=== PATIENT | male | born 1975 | race Caucasian/White ===

== ENCOUNTER 2017-09-06 20:01 | Emergency (ER) | payer OTHER ==
[2017-09-06] MEDS ORDERED: IBUPROFEN 800 MG TAB PO STA (22:05)
[2017-09-06] MEDS ORDERED: DEXAMETHASONE 4 MG TAB PO STA (22:05)
--- NOTE | 2017-09-06 22:12 | ED ---
Back Pain HPI - General Chief Complaint: Back Pain/Injury Stated Complaint: pinched nerve/trouble sleeping Time Seen by Provider: 09/06/17 21:40 Source: patient, RN notes reviewed Limitations: no limitations - History of Present Illness Initial Comments: Is a 42-year-old male with a history of gallbladder no other major medical issues who states for the past several months she's had low back pain for which she's been seeking home care nurse. He's been getting worse over the same period time is had numbness with pins and needles like discomfort to his right foot also some numbness and burning type pain. He states currently the pain is 10/10 severity both was low back which is achy and to his right foot discuss this right calf pain hurts with palpation and movement. He does drive a truck he is not recall any particular incident that hurt his leg or his low back. No urinary or fecal incontinence no fevers chills or sweats no cough or phlegm production no dysuria no hematuria. MD Complaint: back pain, other - Related Data Previous Rx's Medication Instructions Recorded HYDROcodone/APAP 5-325MG [[place] 1 tab PO Q6HR PRN #12 tab 09/06/17 5-325] Hydrocodone/Acetaminophen [[place] 1 each PO Q6HR PRN #20 tab 09/06/17 5-325] Ibuprofen 800 mg PO Q6HR PRN #20 tablet 09/06/17 Orphenadrine [Norflex] 100 mg PO Q12H #7 tablet.er 09/06/17 predniSONE 20 mg PO BID #10 tab 09/06/17 Allergies Allergy/AdvReac Type Severity Reaction Status Date / Time No Known Allergies Allergy Verified 09/06/17 21:37 Review of Systems ROS Statement: Those systems with pertinent positive or pertinent negative responses have been documented in the HPI. ROS Other: All systems not noted in ROS Statement are negative. Past Medical History Additional Past Medical History / Comment(s): back pain, gout History of Any Multi-Drug Resistant Organisms: None Reported Past Surgical History: No Surgical Hx Reported Past Psychological History: No Psychological Hx Reported Smoking Status: Current every day smoker Past Alcohol Use History: Occasional Past Drug Use History: None Reported General Exam - General Exam Comments Initial Comments: This is a well-developed well-nourished awake alert oriented times 3 male Limitations: no limitations General appearance: alert, in distress Head exam: Present: atraumatic, normocephalic, normal inspection Eye exam: Present: normal appearance, PERRL, EOMI. Absent: scleral icterus, conjunctival injection, periorbital swelling ENT exam: Present: normal exam, mucous membranes moist Neck exam: Present: normal inspection. Absent: tenderness, meningismus, lymphadenopathy Respiratory exam: Present: normal lung sounds bilaterally. Absent: respiratory distress, wheezes, rales, rhonchi, stridor Cardiovascular Exam: Present: regular rate, normal rhythm, normal heart sounds. Absent: systolic murmur, diastolic murmur, rubs, gallop, clicks Extremities exam: Present: full ROM, tenderness, normal capillary refill, calf tenderness (Tenderness on palpation no definite Homans sign no definite palpable cords.). Absent: pedal edema, joint swelling Back exam: Present: normal inspection, tenderness, paraspinal tenderness. Absent: CVA tenderness (R), CVA tenderness (L), rash noted (Tenderness palpation of the mid to lower lumbar paraspinous muscles and over the right SI joint and right gluteus.) Neurological exam: Present: alert, oriented X3, CN II-XII intact, reflexes normal. Absent: motor sensory deficit Psychiatric exam: Present: normal affect, normal mood Course Vital Signs 09/06/17 09/06/17 20:06 21:48 Temperature 98.3 F Pulse Rate 86 58 L Respiratory 18 20 Rate Blood Pressure 173/86 171/89 O2 Sat by Pulse 97 96 Oximetry Medical Decision Making - Medical Decision Making I did have a long discussion with patient family regarding the findings. Patient will be discharged with follow-up with orthopedic spine surgery. I did discuss the case with Dr. Flaherty. Patient will follow-up with his primary doctor for referral. - Radiology Data Radiology results: report reviewed (I did review the imaging and reports patient does demonstrate degenerative spine disease with multilevel spondylosis posterior central disc herniations at multiple levels as well as a spinal stenosis at L3 to 4 and L4 to 5 level facet arthropathy he threw disc herniations also at L3 to 4 and L4 to 5 also bilateral neural foraminal narrowing at L3 to S1. No acute fractures or subluxations noted.), image reviewed Disposition Clinical Impression: Strain of lumbar region, Sciatica, Lumbar radiculopathy, Spinal stenosis, Lumbar disc herniation Disposition: HOME SELF-CARE Condition: Good Instructions: Acute Low Back Pain (ED), Chronic Back Pain (ED), Sciatica (ED), Lumbar Radiculopathy (ED) Prescriptions: Hydrocodone/Acetaminophen [[place] 5-325] 1 each PO Q6HR PRN #20 tab PRN Reason: Pain HYDROcodone/APAP 5-325MG [[place] 5-325] 1 tab PO Q6HR PRN #12 tab PRN Reason: Pain Ibuprofen 800 mg PO Q6HR PRN #20 tablet PRN Reason: Pain Orphenadrine [Norflex] 100 mg PO Q12H #7 tablet.er predniSONE 20 mg PO BID #10 tab Referrals: Beatrice Mitchell MD [Primary Care Provider] - 1-2 days
--- NOTE | 2017-09-06 22:40 | CT ---
EXAMINATION TYPE: CT lumbar spine wo con DATE OF EXAM: 09/06/2017 10:30 PM COMPARISON: NONE HISTORY: Low back pain with numbness and tingling down right leg. CT DLP: 2481.30 mGycm Automated exposure control for dose reduction was used. Unenhanced CT of the lumbar spine was performed. Bone and soft tissue window settings are submitted as well as coronal and sagittal reconstructions. The lumbar vertebra have normal alignment. Disc spaces are fairly well-maintained. There are posterio r disc herniations at L3-4 L4-5 L5-S1 with some encroachment on the spinal canal. There is hypertroph ic facet arthropathy in the mid and lower lumbar spine. There is a relative spinal stenosis at L3-4 a nd L4-5. There is no paraspinal mass. There is no compression fracture. Posterior elements are intact . Abdominal aorta is atheromatous. I see no focal bone destruction. IMPRESSION: Multilevel spondylosis. Posterior central disc herniations at multiple levels with a relative spinal stenosis at L3-4 and L4-5. Multilevel facet arthropathy. No fracture seen. Anterior disc herniations also present at L3-4 and L4-5. There is bilateral neural foraminal narrowing due to facet arthropathy from L3 to S1.
--- NOTE | 2017-09-06 23:04 | US ---
EXAMINATION TYPE: US venous doppler duplex LE RT DATE OF EXAM: 09/06/2017 10:07 PM COMPARISON: NONE CLINICAL HISTORY: Pain. left foot numbness SIDE PERFORMED: Right TECHNIQUE: The lower extremity deep venous system is examined utilizing real time linear array sonog tamika with graded compression, doppler sonography and color-flow sonography. VESSELS IMAGED: External Iliac Vein (EIV) Common Femoral Vein Deep Femoral Vein Greater Saphenous Vein * Femoral Vein Popliteal Vein Small Saphenous Vein * Proximal Calf Veins (* superficial vessels) Right Leg: Negative for DVT No evidence of DVT IMPRESSION: Negative exam. No evidence of deep venous thrombosis in the right leg.
[2017-09-06 23:38] VITALS: BP 151/82; PULSE 73; RESP 18; TEMP 97.7
== END 2017-09-06 23:38 | disposition home or self-care (01) ==
LOC: EC 20:01 → MERGE 20:01 → EC 23:38
DX: S39.012A Strain of muscle, fascia and tendon of lower back, initial encounter (principal); M48.061 Spinal stenosis, lumbar region without neurogenic claudication; M51.16 Intervertebral disc disorders with radiculopathy, lumbar region; F17.200 Nicotine dependence, unspecified, uncomplicated
CPT/HCPCS: 93971; 72131; 99283; J8540

== ENCOUNTER 2023-04-12 08:05 | Day surgery (SDC) | payer BC, OTHER ==
[2023-04-12] MEDS ORDERED: LACTATED RINGERS 1,000 ML IV ONE (08:25)
[2023-04-12] MEDS ORDERED: LIDOCAINE 2% INJ 20 MG/ML (2 ML VIAL) ONE (08:33)
[2023-04-12] MEDS ORDERED: PROPOFOL 10 MG/ML 20 ML VIAL IV ONE (08:33)
--- NOTE | 2023-04-12 08:35 | P.GSHP ---
History of Present Illness H&P Date: 04/12/23 Chief Complaint: Colon cancer screening 48-year-old male here for colonoscopy. He had a colonoscopy many years ago that was normal. Family history of prostate cancer and his brother. No bowel complaints. Past Medical History Past Medical History: Diabetes Mellitus, Hearing Disorder / Deafness, Hypertension Additional Past Medical History / Comment(s): Routine colonoscopy. NIDDM type II, occasional back pain, gout, tinnitis L ear History of Any Multi-Drug Resistant Organisms: None Reported Past Surgical History: No Surgical Hx Reported Additional Past Surgical History / Comment(s): Vasectomy, colonoscopies Past Anesthesia/Blood Transfusion Reactions: No Reported Reaction Smoking Status: Current every day smoker - Past Family History Father Family Medical History: Liver Disease Additional Family Medical History / Comment(s): from Cirrhosis. Medications and Allergies Home Medications Medication Instructions Recorded Confirmed Type Ibuprofen [Motrin Ib] 800 mg PO DIRECTED PRN 04/06/23 04/12/23 History Pravastatin Sodium [Pravachol] 10 mg PO DAILY 04/06/23 04/12/23 History Unk Multi Vitamin 1 tab PO DAILY 04/06/23 04/12/23 History lisinopriL [Zestril] 5 mg PO HS 04/06/23 04/12/23 History metFORMIN HCL 1,000 mg PO BID 04/06/23 04/12/23 History Allergies Allergy/AdvReac Type Severity Reaction Status Date / Time No Known Allergies Allergy Verified 04/12/23 08:27 Surgical - Exam Vital Signs Temp Pulse Resp BP Pulse Ox 97.7 F 75 16 139/80 96 04/12/23 08:23 04/12/23 08:23 04/12/23 08:23 04/12/23 08:23 04/12/23 08:23 Physical exam: General: Well-developed, well-nourished HEENT: Normocephalic, sclerae nonicteric Abdomen: Nontender, nondistended Extremities: No edema Neuro: Alert and oriented Assessment and Plan (1) Colon cancer screening Narrative/Plan: Will proceed with colonoscopy at this time. Current Visit: Yes Status: Acute Code(s): Z12.11 - ENCOUNTER FOR SCREENING FOR MALIGNANT NEOPLASM OF COLON SNOMED Code(s): 369961732
--- NOTE | 2023-04-12 08:57 | P.PCN ---
Date of Procedure: 04/12/23 Procedure(s) Performed: PREOPERATIVE DIAGNOSIS: Colon cancer screening POSTOPERATIVE DIAGNOSIS: Ileocecal valve polyp, descending colon polyp PROCEDURE: Colonoscopy with snare polypectomy and biopsy ANESTHESIA: MAC SURGEON: Guicho Villalobos M.D. SPECIMENS: Polyps ENDOSCOPIC PROCEDURE: The patient was placed on the endoscopy table in the left decubitus position. The Olympus colonoscope was inserted into the anus and passed under direct visualization to the base of the cecum. The appendiceal orifice was visualized. From that point the scope was slowly withdrawn inspecting all surfaces carefully. There was noted to be irregularity of the ileocecal valve. It was difficult to see a distinct polyp however there was some granular appearing tissue at the valve orifice. This may have represented normal small bowel mucosa but atypical polyp was a possibility. Multiple cold biopsies of this area took place. The remainder of the cecum ascending transverse colon appeared normal. In the descending colon a small polyp was seen measuring 7 mm and removed using the snare with cautery technique. The remainder of the descending sigmoid and rectum appeared normal. The patient's prep was slightly suboptimal limited visualization of some of the mucosal surfaces. Digital rectal examination was normal. The patient was taken to the recovery room in stable condition per anesthesia guidelines. RECOMMENDATIONS: Await biopsy results. If ileocecal valve biopsies show adenomatous tissue will require referral to advanced endoscopy for endoscopic mucosal resection.
[2023-04-12 09:01] VITALS: PULSE 74
[2023-04-12] MEDS ORDERED: LIDOCAINE 1% (10MG/ML) FOR IV START INTRADERMA PRN (09:02)
[2023-04-12] MEDS ORDERED: LACTATED RINGERS 1,000 ML IV SCH (09:02)
[2023-04-12 09:09] LABS: Glucose,Whole Blood 239 mg/dL (70-110)
[2023-04-12 09:12] LABS: Glucose,Whole Blood 230 mg/dL (70-110)
[2023-04-12 09:26] VITALS: BP 142/91; RESP 20; TEMP 70
== END 2023-04-12 09:54 | disposition home or self-care (01) ==
LOC: ORWHC2ENDO 08:05
PROVIDERS: ATTEND Surgery
DX: Z12.11 Encounter for screening for malignant neoplasm of colon (principal); D12.4 Benign neoplasm of descending colon; E11.9 Type 2 diabetes mellitus without complications; I10 Essential (primary) hypertension; F17.200 Nicotine dependence, unspecified, uncomplicated; Z80.42 Family history of malignant neoplasm of prostate; Z83.79 Family history of other diseases of the digestive system; Z79.899 Other long term (current) drug therapy
CPT/HCPCS: 88305; 45380; 45385; J2704; J2001

== ENCOUNTER 2025-02-05 07:06 | Day surgery (SDC) | payer BC ==
[2025-02-04 08:54] VITALS: BMI 35.9
[~2025-02-05 07:06] MED LIST: LACTATED RINGERS 1,000 ML IV SCH
[2025-02-05] MEDS: IV FLUID CONTINUATION 1,000 ML IV ONE (07:30)
[2025-02-05 07:52] LABS: Glucose,Whole Blood 100 mg/dL (70-110)
[2025-02-05 07:54] VITALS: RESP 16; TEMP 96.9
[2025-02-05] MEDS ORDERED: PROPOFOL 10 MG/ML 20 ML VIAL IV ONE (08:30)
[2025-02-05] MEDS ORDERED: LIDOCAINE 1% INJ 10MG/ML (20 ML MDV) ONE (08:30)
--- NOTE | 2025-02-05 08:34 | P.GSHP ---
History of Present Illness H&P Date: 02/05/25 Chief Complaint: History of colon polyp 49-year-old male here for colonoscopy. Patient last had a colonoscopy 2 years ago. 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 This required resection excision by advanced endoscopy at [facility]. This is his first follow-up colonoscopy since then. Family history of colon cancer in his brother. Past Medical History Past Medical History: Diabetes Mellitus, Hearing Disorder / Deafness, Hypertension Additional Past Medical History / Comment(s): NIDDM type II, occasional back pain, gout, tinnitis L ear History of Any Multi-Drug Resistant Organisms: None Reported Past Surgical History: No Surgical Hx Reported Additional Past Surgical History / Comment(s): Vasectomy, colonoscopies Past Anesthesia/Blood Transfusion Reactions: No Reported Reaction Smoking Status: Current every day smoker - Past Family History Father Family Medical History: Liver Disease Additional Family Medical History / Comment(s): from Cirrhosis. Medications and Allergies Home Medications Medication Instructions Recorded Confirmed Type metFORMIN HCL 1,000 mg PO BID 04/06/23 02/05/25 History Empagliflozin [Jardiance] 25 mg PO DAILY 02/04/25 02/05/25 History Multivit-Mins/Iron/Folic/Lycop 1 each PO DAILY 02/04/25 02/05/25 History [Centrum Men's Tablet] Rosuvastatin [Crestor] 10 mg PO HS 02/04/25 02/05/25 History Tirzepatide [Mounjaro] 2.5 mg SQ SA 02/04/25 02/05/25 History Valsartan [Diovan] 160 mg PO DAILY 02/04/25 02/05/25 History Allergies Allergy/AdvReac Type Severity Reaction Status Date / Time No Known Allergies Allergy Verified 02/04/25 08:45 Surgical - Exam Vital Signs Temp Pulse Resp BP Pulse Ox 96.9 F L 86 16 121/82 98 02/05/25 07:30 02/05/25 07:30 02/05/25 07:30 02/05/25 07:30 02/05/25 07:30 Physical exam: General: Well-developed, well-nourished HEENT: Normocephalic, sclerae nonicteric Abdomen: Nontender, nondistended Extremities: No edema Neuro: Alert and oriented Assessment and Plan (1) History of colon polyps Narrative/Plan: Will proceed with colonoscopy at this time. Current Visit: Yes Status: Acute Code(s): Z86.0100 - PERSONAL HISTORY OF COLON POLYPS, UNSPECIFIED SNOMED Code(s): 532636920
--- NOTE | 2025-02-05 08:52 | P.PCN ---
Date of Procedure: 02/05/25 Procedure(s) Performed: PREOPERATIVE DIAGNOSIS: History of previous colon polyp, family history of colon cancer in brother POSTOPERATIVE DIAGNOSIS: Normal exam PROCEDURE: Colonoscopy with biopsy of previous ileocecal valve polyp scar site ANESTHESIA: MAC SURGEON: Guicho Villalobos M.D. SPECIMENS: Ileocecal valve ENDOSCOPIC PROCEDURE: The patient was placed on the endoscopy table in the left decubitus position. The Olympus colonoscope was inserted into the anus and passed under direct visualization to the base of the cecum. The appendiceal orifice was visualized. From that point the scope was slowly withdrawn inspecting all surfaces carefully. There were no neoplastic inflammatory or polypoid lesions throughout the cecum, ascending, transverse, descending, sigmoid and rectum. There was some scarring at the ileocecal valve at the site of previous tubular adenoma that was resected at [facility]. A biopsy with a cold biopsy forceps took place. The remainder of the ascending transverse descending sigmoid and rectum appeared normal. There was no visible diverticulosis. Digital rectal examination was normal. The patient was taken to the recovery room in stable condition per anesthesia guidelines. RECOMMENDATIONS: Await biopsy results. Anticipate repeat colonoscopy 5 years.
[2025-02-05 09:33] VITALS: BP 127/74; PULSE 78
== END 2025-02-05 09:46 | disposition home or self-care (01) ==
LOC: ORWHC2ENDO 07:06
PROVIDERS: ATTEND Surgery
DX: K63.5 Polyp of colon (principal); E11.9 Type 2 diabetes mellitus without complications; I10 Essential (primary) hypertension; F17.200 Nicotine dependence, unspecified, uncomplicated; Z80.0 Family history of malignant neoplasm of digestive organs; Z83.79 Family history of other diseases of the digestive system; Z79.84 Long term (current) use of oral hypoglycemic drugs; Z79.899 Other long term (current) drug therapy
CPT/HCPCS: 88305; 45380; J2003; J2704; 45385